=== PATIENT | male | born 1980 | race Caucasian/White ===

== ENCOUNTER 2020-12-09 19:51 | Emergency (ER) | payer OTHER ==
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
[2020-12-10] MEDS ORDERED: ALBUTEROL NEB 2.5 MG/3 ML INH STA (01:06)
[2020-12-10] MEDS ORDERED: predniSONE 20 MG TABLET PO STA (01:06)
[2020-12-10] MEDS ORDERED: HYDROcod/ACET 5/325 Prepack 4 PO STA (01:34)
[2020-12-10 01:51] VITALS: BP 136/90
--- NOTE | 2020-12-10 08:20 | XRAY Report ---
PROCEDURE: Chest 2 View X-Ray INDICATIONS: cough, dyspnea TECHNIQUE: 2 view(s) of the chest. COMPARISON: None. FINDINGS: Surgical changes and devices: None. Lungs and pleura: No pleural effusions or pneumothorax. Lungs are clear. Mediastinum: Mediastinal contours are normal. Heart size is normal. Bones and chest wall: No suspicious bony abnormalities. Soft tissues appear unremarkable. IMPRESSION: Normal for age, source of current symptoms is not seen. Reviewed by: David Londono MD on 12/10/2020 8:18 AM PDT Approved by: David Londono MD on 12/10/2020 8:18 AM PDT Station ID: [id number]
== END 2020-12-10 02:16 | disposition home or self-care (01) ==
LOC: ED 19:51
DX: T65.891A Toxic effect of other specified substances, accidental (unintentional), initial encounter (principal); J68.0 Bronchitis and pneumonitis due to chemicals, gases, fumes and vapors; Y99.0 Civilian activity done for income or pay
CPT/HCPCS: 71046; 94640; 99283; 99284; J7512

== ENCOUNTER 2022-11-17 12:41 | Outpatient (CLI) | payer BC ==
--- NOTE | 2022-11-17 14:20 | XRAY Report ---
PROCEDURE: Cervical Spine 2 View INDICATIONS: NECK, LOW BACK PAIN TECHNIQUE: 3 view(s) of the cervical spine were acquired. COMPARISON: None. FINDINGS: Bones: No fractures or dislocations to the C7 level. The lateral masses of C1 appear intact on the odontoid view. No suspicious bony lesions. Mild disc height loss at C5-6, C6-7. Minimal left facet arthrosis at C3-4. Soft tissues: No prevertebral soft tissue swelling. IMPRESSION: Minimal degenerative disc disease and facet arthrosis. Reviewed by: Chester Smith on 11/17/2022 2:19 PM PDT Approved by: Chester Smith on 11/17/2022 2:19 PM PDT Station ID: [id number]
--- NOTE | 2022-11-17 17:10 | XRAY Report ---
PROCEDURE: Lumbar Spine 2 View INDICATIONS: NECK, LOW BACK PAIN TECHNIQUE: 2 views of the lumbar spine were acquired. COMPARISON: None. FINDINGS: Bones: 5 [id number] vertebrae are present. There is normal bony alignment. No vertebral body compression fractures. No suspicious bony lesions. Moderate disc height loss at L5-S1. Facet arthros is L4-5 and L5-S1. Soft tissues: Overlying bowel gas pattern is normal. No suspicious soft tissue calcifications. IMPRESSION: Moderate disc height loss at L5-S1 and facet arthrosis L4-S1. Reviewed by: Chester Smith on 11/17/2022 5:09 PM PDT Approved by: Chester Smith on 11/17/2022 5:09 PM PDT Station ID: [id number]
== END 2022-11-17 12:42 | disposition home or self-care (01) ==
LOC: DI 12:41
PROVIDERS: ATTEND Student in an Organized Health Care Education/Training Program
DX: M51.37 Other intervertebral disc degeneration, lumbosacral region (principal); M47.817 Spondylosis without myelopathy or radiculopathy, lumbosacral region; M47.812 Spondylosis without myelopathy or radiculopathy, cervical region; M50.322 Other cervical disc degeneration at C5-C6 level